=== PATIENT | female | born 1985 | race Caucasian/White ===

== ENCOUNTER 2021-08-21 02:10 | Emergency (ER) | payer BC ==
[~2021-08-21] VITALS: Ht 172.7 cm; Wt 103.4 kg
[2021-08-21 02:16] VITALS: BP 147/97
--- NOTE | 2021-08-21 02:22 | NUR ---
Patient ambulated to bed 3.
[2021-08-21] MEDS ORDERED: DEXAMETHASONE 10 MG/ML VIAL PO ONE (02:50)
--- NOTE | 2021-08-21 02:56 | NUR ---
36 Y.O. F C/O sore throat x 6 days. Patient reported, had fever, sore throat, cough, no SOB since Tuesday. PAIN 11/16. PT SAID SHE TOOK MUCINEX AND CLARITIN AT HOME. DENIES N/V/D/ AND CHEST PAIN. A&OX4, SKIN INTACT, VITALS WNL, NO SIGNS OF RESPIRATORY DISTRESS AND STEADY GAIT. PMHx: DENIES
[2021-08-21] MEDS ORDERED: AMOX500C25 PO (02:59)
[2021-08-21] MEDS ORDERED: NAPR-54 PO (02:59)
[2021-08-21] MEDS ORDERED: ACET-8386 PO (02:59)
[2021-08-21 03:15] VITALS: BP 147/97
--- NOTE | 2021-08-21 03:16 | NUR ---
Patient discharged with v/s stable. Written and verbal after care instructions given and explained. Patient alert, oriented and verbalized understanding of instructions. Ambulatory with steady gait. All questions addressed prior to discharge. ID band removed. Patient advised to follow up with PMD. Rx of NAPROXEN, AMOXICILLIN AND HYDROCODON-ACETAMINOPHEN 5-325 given. Patient educated on indication of medication including possible reaction and side effects. Opportunity to ask questions provided and answered.
== END 2021-08-21 03:12 | disposition home or self-care (01) ==
LOC: MED 02:10
DX: J02.9 Acute pharyngitis, unspecified (principal); Z79.899 Other long term (current) drug therapy
CPT/HCPCS: 87081; 99283; J1100